=== PATIENT | male | born 1985 | race Caucasian/White ===

== ENCOUNTER → 2016-07-16 | Outpatient (CLI) | payer BC ==
[2016-07-16 17:20] LABS: BLOOD UREA NITROGEN 12 mg/dl (7-18); BUN/CREATININE RATIO 12.2 (10-20); CALCIUM 9.1 mg/dl (8.5-10.1); CARBON DIOXIDE 26 mmol/L (21-32); CHLORIDE 107 mmol/L (98-107); GLUCOSE 71 mg/dl (70-99); POTASSIUM 3.8 mmol/L (3.5-5.1); SODIUM 143 mmol/L (136-145)
--- NOTE | 2016-07-21 12:15 | CODING QUERY MEDICAL NECESSITY ---
SUPPORTING DIAGNOSIS NEEDED A supporting diagnosis is required for the test/procedure performed on this patient in order for us to be reimbursed by the patient's insurance. Please provide a supporting diagnosis for the following test/procedure listed below next to the test name along with your signature. *If there is no additional diagnosis for this patient that would support the following test/procedure please document that below next to the test/procedure. Test(s)/Procedure(s) that require a supporting diagnosis: * VITAMIN D 25-HYDROXY DIAGNOSIS: * DOS: 07/16/16 Provider Signature: Date: Thank you [facility] Once completed, please kindly fax back to [phone] For questions please call [phone]
== END | disposition home or self-care (01) ==
LOC: C.LAB1850 16:00
PROVIDERS: ATTEND Internal Medicine Geriatric Medicine
DX: F32.9 Major depressive disorder, single episode, unspecified (principal); E55.9 Vitamin D deficiency, unspecified

== ENCOUNTER → 2016-07-22 | Outpatient (CLI) | payer BC ==
[2016-07-22 17:01] LABS: BASO % 0.2 %; BASO ABS # 0.02 K/uL (0-0.2); COMPLETE YES; EOS % 0.8 %; HEMATOCRIT 43.1 % (42-52); IG% 0.2 %; LYMPH % 20.9 %; LYMPH ABS # 1.79 K/uL (1.2-3.4); MEAN CORPUSCULAR HEMOGLOBIN 29.4 pg (25-34); MEAN PLATELET VOLUME 11.8 fL (7.4-10.4); MONO % 8.3 %; NEUT % 69.6 %; PLATELET COUNT 255 K/uL (130-400); RED BLOOD COUNT 5.13 M/uL (4.7-6.1); WHITE BLOOD COUNT 8.56 K/uL (4.8-10.8)
== END | disposition home or self-care (01) ==
LOC: C.LABBC 14:36
PROVIDERS: ATTEND Internal Medicine Geriatric Medicine
DX: R53.83 Other fatigue (principal)

== ENCOUNTER → 2017-04-16 | Outpatient (CLI) | payer OTHER ==
[2017-04-16 19:05] LABS: CHOLESTEROL 213 mg/dl (0-200); CHOLESTEROL/HDL RATIO 3.7; HDL CHOLESTEROL 57 mg/dl; TRIGLYCERIDES 314 mg/dl (0-150); VERY LOW DENSITY LIPOPROT CALC 63 mg/dl
== END | disposition home or self-care (01) ==
LOC: C.LAB 17:57
PROVIDERS: ATTEND Physician Assistant Medical
DX: Z00.00 Encounter for general adult medical examination without abnormal findings (principal)

== ENCOUNTER → 2017-04-20 | Outpatient (CLI) | payer OTHER | END | disposition home or self-care (01) | LOC: C.LABBC 13:37 | PROVIDERS: ATTEND Physician Assistant Medical | DX: E55.9 Vitamin D deficiency, unspecified (principal) ==